=== PATIENT | female | born 1995 | race African-American/Black ===

== ENCOUNTER 2020-12-22 10:18 | Emergency (ER) | payer BC ==
[~2020-12-22] VITALS: Ht 162.6 cm; Wt 79.4 kg
[2020-12-22 10:22] VITALS: BP_SYST 122
--- NOTE | 2020-12-22 10:22 | NUR ---
Pt to bed 3 for evaluation.
--- NOTE | 2020-12-22 10:25 | NUR ---
Pt AAO and ambulatory reporting a sudden onset of C.P. that woke her from sleep. Pt reports that the chest pain radiates from chest to back and left arm. Pt rates pain 4/10 and denies any prior medical history.
--- NOTE | 2020-12-22 11:15 | NUR ---
Dr. Recinos to bedside to evaluate.
[2020-12-22] MEDS ORDERED: IBUP-1969 PO (11:17)
--- NOTE | 2020-12-22 11:17 | NUR ---
Pt ambulated to radiology for CXR.
[2020-12-22] MEDS ORDERED: IBUPROFEN 600 MG TABLET PO ONE (11:30)
[2020-12-22 11:55] VITALS: BP_SYST 122
--- NOTE | 2020-12-22 11:55 | NUR ---
Patient given written and verbal discharge instructions and verbalizes understanding. Dr. Jorje RICCI MD discussed with patient the results and treatment provided. Patient in stable condition. ID arm band removed. Rx of Motrin given. Patient educated on pain management and to follow up with PMD. Pain Scale 0/10. Opportunity for questions provided and answered. Medication side effect fact sheet provided.
== END 2020-12-22 11:55 | disposition home or self-care (01) ==
LOC: SED 10:18
DX: M94.0 Chondrocostal junction syndrome [Tietze] (principal); F12.90 Cannabis use, unspecified, uncomplicated; Z79.899 Other long term (current) drug therapy
CPT/HCPCS: 71045; 81025; 93005; 99283

== ENCOUNTER 2022-01-12 09:33 | Emergency (ER) | payer BC ==
[~2022-01-12] VITALS: Ht 162.6 cm; Wt 77.1 kg
[2022-01-12 09:33] VITALS: BP_SYST 131
[~2022-01-12 09:33] MED LIST: IBUP-1969 PO
--- NOTE | 2022-01-12 09:33 | NUR ---
BROUGHT BACK TO BED #7 AND TRIAGED. REPORT GIVEN TO ISAIAS
--- NOTE | 2022-01-12 10:07 | NUR ---
LAB PHLEBOTAMIST CARLITOS BLOOD BEDSIDE, THEN PT WAS TAKEN TO US.
[2022-01-12 10:15] LABS: BASOPHILS % (AUTO) 1.1 % (0.0-2.0); EOSINOPHILS # (AUTO) 0.1 K/uL (0.0-0.4); HEMATOCRIT 37.1 % (36-48); HEMOGLOBIN 12.9 g/dL (12.0-16.0); LYMPHOCYTES # (AUTO) 1.2 K/uL (1.0-5.5); MEAN CORPUSCULAR HEMOGLOBIN 31 pg (27-31); MEAN CORPUSCULAR HGB CONC 35 % (32-36); MEAN CORPUSCULAR VOLUME 89 fL (79.0-98.0); MONOCYTES # (AUTO) 0.5 K/uL (0.0-1.0); MONOCYTES % (AUTO) 15.8 % (1.7-9.3); NEUTROPHILS # (AUTO) 1.2 K/uL (1.8-7.7); NEUTROPHILS % (AUTO) 41.1 % (40.0-70.0); PLATELET COUNT (AUTO) 206 K/uL (130-430); RED BLOOD CELL COUNT(AUTO) 4.16 MIL/uL (4.2-6.2); RED CELL DISTRIBUTION WIDTH 11.7 % (9.0-15.0)
[2022-01-12 10:30] LABS: CALCIUM 8.9 mg/dL (8.4-11.0); CREATININE 0.79 mg/dL (0.55-1.30)
[2022-01-12 10:41] LABS: ALBUMIN 3.7 g/dL (3.4-4.8); TOTAL BILIRUBIN 0.3 mg/dL (0.0-1.0)
--- NOTE | 2022-01-12 10:53 | NUR ---
PT DONE THE CT AND BACK TO ROOM. URINE COLLECTED, URINE HCG DONE. URINE SAMPLE SENT TO LAB. DR. TURCIOS BEDSIDE WITH PT.
[2022-01-12] MEDS ORDERED: ACETAMINOPHEN 500 MG TABLET PO ONE (11:00)
[2022-01-12] MEDS ORDERED: PNV1TABL57 PO (11:44)
[2022-01-12 12:18] LABS: BILIRUBIN,URINE NEGATIVE (NEGATIVE); BLOOD, URINE 3+ (NEGATIVE); CLARITY/URINE TURBID (CLEAR); COLOR,URINE RED (YELLOW); GLUCOSE,URINE NEGATIVE (NEGATIVE); KETONES,URINE NEGATIVE (NEGATIVE); LEUKOCYTE ESTERASE ,URINE NEGATIVE (NEGATIVE); NITRITE, URINE NEGATIVE (NEGATIVE); PROTEIN URINE 1+ (NEGATIVE); UROBILINOGEN,URINE 0.2 (0.2-1.0)
[2022-01-12 12:21] LABS: BACTERIA,URINE RARE /HPF (None Seen); MUCUS,URINE 1+ /LPF (None Seen); RBC,URINE >100 /HPF (0-3); WBC,URINE 0-3 /HPF (0-3)
[2022-01-12 12:43] VITALS: BP_SYST 131
--- NOTE | 2022-01-12 12:43 | NUR ---
Patient given written and verbal discharge instructions and verbalizes understanding. ER MD discussed with patient the results and treatment provided. Patient in stable condition. ID arm band removed. Rx of vitamins given. Patient educated on pain management and to follow up with PMD. Pain Scale 0/10. Opportunity for questions provided and answered. Medication side effect fact sheet provided.
== END 2022-01-12 12:43 | disposition home or self-care (01) ==
LOC: SED 09:33
DX: O20.0 Threatened abortion (principal); O20.9 Hemorrhage in early pregnancy, unspecified; F12.90 Cannabis use, unspecified, uncomplicated; Z3A.01 Less than 8 weeks gestation of pregnancy; Z79.899 Other long term (current) drug therapy
CPT/HCPCS: 36415; 76801; 76817; 80053; 81000; 81025; 84702; 85025; 86886; 86900; 86901; 99284

== ENCOUNTER 2022-01-14 02:16 | Emergency (ER) | payer BC ==
[~2022-01-14] VITALS: Ht 162.6 cm; Wt 77.1 kg
[~2022-01-14 02:16] MED LIST changes: +PNV1TABL57 PO
[2022-01-14] MEDS ORDERED: FLUORESCEIN SODIUM 1 MG OPHTHALMIC STRIP OP ONE (02:17)
[2022-01-14 02:47] VITALS: BP_SYST 132
[2022-01-14] MEDS ORDERED: ACETAMINOPHEN 500 MG TABLET PO ONE (03:45)
[2022-01-14 03:51] LABS: BASOPHILS % (AUTO) 0.6 % (0.0-2.0); EOSINOPHILS # (AUTO) 0.1 K/uL (0.0-0.4); EOSINOPHILS % (AUTO) 3.6 % (0.0-4.0); HEMATOCRIT 36.1 % (36-48); HEMOGLOBIN 12.5 g/dL (12.0-16.0); LYMPHOCYTES # (AUTO) 0.9 K/uL (1.0-5.5); LYMPHOCYTES % (AUTO) 28.6 % (20.5-51.5); MEAN CORPUSCULAR HEMOGLOBIN 31 pg (27-31); MEAN CORPUSCULAR HGB CONC 35 % (32-36); MEAN CORPUSCULAR VOLUME 90 fL (79.0-98.0); MONOCYTES # (AUTO) 0.5 K/uL (0.0-1.0); MONOCYTES % (AUTO) 16.1 % (1.7-9.3); NEUTROPHILS # (AUTO) 1.6 K/uL (1.8-7.7); NEUTROPHILS % (AUTO) 51.1 % (40.0-70.0); PLATELET COUNT (AUTO) 198 K/uL (130-430); RED BLOOD CELL COUNT(AUTO) 4.03 MIL/uL (4.2-6.2); RED CELL DISTRIBUTION WIDTH 11.7 % (9.0-15.0); WHITE BLOOD COUNT (AUTO) 3.2 K/uL (4.8-10.8)
[2022-01-14 05:00] VITALS: BP_SYST 119
== END 2022-01-14 05:00 | disposition home or self-care (01) ==
LOC: SED 02:16
DX: O03.9 Complete or unspecified spontaneous abortion without complication (principal); H92.02 Otalgia, left ear; Z3A.01 Less than 8 weeks gestation of pregnancy; Z79.899 Other long term (current) drug therapy
CPT/HCPCS: 99283; 84702; 85025; 36415; J7030

== ENCOUNTER 2023-03-20 11:13 | Emergency (ER) | payer BC ==
[~2023-03-20] VITALS: Ht 162.6 cm; Wt 77.1 kg
[2023-03-20 11:25] VITALS: BP_SYST 129; PULSE 113; RESP 19; TEMP 98.1; O2SAT 97
[2023-03-20 12:10] LABS: BASOPHILS % (AUTO) 0.4 % (0.0-2.0); EOSINOPHILS % (AUTO) 0.5 % (0.0-4.0); HEMATOCRIT 36.8 % (36-48); HEMOGLOBIN 12.8 g/dL (12.0-16.0); LYMPHOCYTES # (AUTO) 0.3 K/uL (1.0-5.5); LYMPHOCYTES % (AUTO) 7.9 % (20.5-51.5); MEAN CORPUSCULAR HEMOGLOBIN 32 pg (27-31); MEAN CORPUSCULAR HGB CONC 35 % (32-36); MEAN CORPUSCULAR VOLUME 91 fL (79.0-98.0); MONOCYTES # (AUTO) 0.4 K/uL (0.0-1.0); MONOCYTES % (AUTO) 10.6 % (1.7-9.3); NEUTROPHILS # (AUTO) 3.3 K/uL (1.8-7.7); NEUTROPHILS % (AUTO) 80.6 % (40.0-70.0); PLATELET COUNT (AUTO) 242 K/uL (130-430); RED BLOOD CELL COUNT(AUTO) 4.07 MIL/uL (4.2-6.2); RED CELL DISTRIBUTION WIDTH 12.6 % (9.0-15.0)
[2023-03-20 12:19] LABS: INFLUENZA TYPE B NEGATIVE (NEGATIVE)
[2023-03-20 12:21] LABS: INFLUENZA TYPE A Positive (NEGATIVE)
[2023-03-20 12:26] LABS: CALCIUM 8.9 mg/dL (8.4-11.0); CREATININE 0.83 mg/dL (0.55-1.30); POTASSIUM 3.9 mmol/L (3.5-5.1)
[2023-03-20] MEDS ORDERED: OSEL75CA PO (12:34)
[2023-03-20] MEDS ORDERED: NAPR-688 PO (12:46)
[2023-03-20 12:58] VITALS: BP_SYST 129; PULSE 113; RESP 19; TEMP 98.1; O2SAT 97
== END 2023-03-20 12:57 | disposition home or self-care (01) ==
LOC: SED 11:13
DX: J10.1 Influenza due to other identified influenza virus with other respiratory manifestations (principal); B97.89 Other viral agents as the cause of diseases classified elsewhere; R05.9 Cough, unspecified; R50.9 Fever, unspecified; M79.10 Myalgia, unspecified site; Z79.899 Other long term (current) drug therapy; Z20.822 Contact with and (suspected) exposure to COVID-19
CPT/HCPCS: 36415; 71045; 80048; 81025; 85025; 99284